=== PATIENT | male | born 1945 | race Caucasian/White ===

== ENCOUNTER 2019-02-07 09:34 | Inpatient (IN) | payer OTHER ==
[~2019-02-07] VITALS: Ht 167.6 cm; Wt 86.2 kg
[~2019-02-07 09:34] MED LIST: AMLODIPINE BESI25 GM; APRESOLINE 10MG10 MG; CARVEDILOL25 MG; COUMADIN1 MG; COZAAR100 MG; HUMULIN R500 U/ML; LANTUS100 U/ML; LASIX20 MG; METFORMIN HYDRO25 GM; SIMVASTATIN5 MG; SYNTHROID50 MCG; TAMS0.4C
--- NOTE | 2019-02-07 10:15 | NUR ---
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
--- NOTE | 2019-02-07 10:27 | NUR ---
PACIENTE ALERTA Y ORIENADO EVALUADO POR SUSANNAH DESAI AL MOMNETO NO PRESNETA DOLOR , SE EXTRAEN MUESTRAS DE ENRIQUE PO RMISS. CRISTY Y SE LELO ENOBSERVACION PO RCAMBIOS ENSU CONDICN. PENDIENTE A REALIZAR ESTUDIOS DE CT Y XRAY .
--- NOTE | 2019-02-07 15:13 | NUR ---
PTE ALERTA Y ORIENTADO X 3 ESFERAS EN COMPANIA DE FAMILIAR,EN CAMA CON BARANDAS ELEVADAS,CONECTADO A MONITOR CARDIACO Y OXIMETRIA.AREA DE VENOPUNCION PATENTE Y HARLEEN DE EDEMA.REFIERE DOLOR DE EDNA,SE NOTIFICA A DR DESAI QUIEN ORDENA TYLENOL 1000MG PO Y SE EJECUTA,PTE CON BUEN PATRON DE MOVIMIENTO.SE LELO BAJO OBSERVACION POR CAMBIOS Y EVALUACION DE DR SHAYY MARIANO.
== END 2019-02-08 07:09 | disposition expired | DRG 65 ==
LOC: ER 09:34 → MEDJ 20:15 → SEC-K 02-08 01:31
PROVIDERS: ADMIT Internal Medicine
PROC: BW28ZZZ Computerized Tomography (CT Scan) of Head (ICD-10-PCS; principal; 2019-02-07)
PROC: 4A12X4Z Monitoring of Cardiac Electrical Activity, External Approach (ICD-10-PCS; 2019-02-07)
DX: I63.49 Cerebral infarction due to embolism of other cerebral artery (principal); I13.0 Hypertensive heart and chronic kidney disease with heart failure and stage 1 through stage 4 chronic kidney disease, or unspecified chronic kidney disease; L97.821 Non-pressure chronic ulcer of other part of left lower leg limited to breakdown of skin; M31.8 Other specified necrotizing vasculopathies; G31.89 Other specified degenerative diseases of nervous system; Z79.01 Long term (current) use of anticoagulants; E78.49 Other hyperlipidemia; E11.69 Type 2 diabetes mellitus with other specified complication; Z95.0 Presence of cardiac pacemaker; N40.0 Benign prostatic hyperplasia without lower urinary tract symptoms; Z95.2 Presence of prosthetic heart valve; I50.89 Other heart failure; N18.3 Chronic kidney disease, stage 3 (moderate); E03.8 Other specified hypothyroidism; I69.398 Other sequelae of cerebral infarction; R56.9 Unspecified convulsions; I46.9 Cardiac arrest, cause unspecified